=== PATIENT | female | born 1955 | race Caucasian/White ===

== ENCOUNTER 2019-04-28 18:20 | Inpatient (IN) | payer MEDICARE, OTHER ==
[~2019-04-28] VITALS: Ht 175.3 cm; Wt 51.7 kg
[2019-04-28 19:06] LABS: BASOPHILS # (AUTO) 0.1 K/uL (0.0-8.0); BASOPHILS % (AUTO) 0.8 % (0.0-2.0); EOSINOPHILS # (AUTO) 0.1 K/uL (0.0-0.7); EOSINOPHILS % (AUTO) 1.4 % (0.0-7.0); HEMATOCRIT 42.2 % (31.2-41.9); HEMOGLOBIN 14.4 g/dL (10.9-14.3); LYMPHOCYTES # (AUTO) 1.5 K/uL (20.0-40.0); LYMPHOCYTES % (AUTO) 20.2 % (20.5-51.5); MEAN CORPUSCULAR HEMOGLOBIN 31.4 uug (24.7-32.8); MEAN CORPUSCULAR HGB CONC 34 g/dL (32.3-35.6); MEAN CORPUSCULAR VOLUME 91.9 fL (75.5-95.3); MONOCYTES # (AUTO) 0.3 K/uL (2.0-10.0); MONOCYTES % (AUTO) 4.6 % (0.0-11.0); NEUTROPHILS # (AUTO) 5.5 K/uL (1.8-8.9); PLATELET COUNT (AUTO) 262 K/uL (179-408); WHITE BLOOD COUNT (AUTO) 7.6 K/uL (3.8-11.8)
[2019-04-28 19:09] LABS: *BILIRUBIN,URIN NEGATIVE (NEGATIVE); *CLARITY,URINE CLEAR (CLEAR); *COLOR,URINE YELLOW (YELLOW); *KETONES,URINE NEGATIVE (NEGATIVE); *UROBILINOGEN,URINE 0.2 E.U./dl (NORMAL); LEUKOCYTE ESTERASE ,URINE NEGATIVE (NEGATIVE); NITRITE, URINE NEGATIVE (NEGATIVE); UGLUCOSE NEGATIVE (NEGATIVE)
[2019-04-28 19:10] LABS: CARBON DIOXIDE 26 mmol/L (21-32); CHLORIDE 106 mmol/L (98-107); CREATININE 0.9 mg/dL (0.6-1.3); GLUCOSE 103 mg/dL (74-106); POTASSIUM 3.9 mmol/L (3.5-5.1); UREA NITROGEN, BLOOD 13 mg/dL (7-18)
[2019-04-28 19:16] LABS: ALANINE AMINOTRANSFERASE 27 U/L (14-59); ALKALINE PHOSPHATASE 73 U/L (50-136); ASPARTATE AMINOTRANSFERASE 29 U/L (15-37); BILIRUBIN,DIRECT 0.2 mg/dL (0.0-0.2); BILIRUBIN,TOTAL 0.7 mg/dL (0.2-1.0); TOTAL PROTEIN, SERUM 8.2 g/dL (6.4-8.2)
[2019-04-28 19:20] LABS: ACETAMINOPHEN < 2.0 ug/mL (10-30)
[2019-04-28 19:23] LABS: ETHANOL < 3 MG/DL (0-0)
[2019-04-28 19:26] LABS: *BLOOD, URINE TRACE (NEGATIVE)
[2019-04-28 19:27] LABS: *AMPHETAMINE, URINE NEGATIVE (NEGATIVE); *BARBITURATE, URINE NEGATIVE (NEGATIVE); *CANNABINOID, URINE NEGATIVE (NEGATIVE); *COCCAINE, URINE NEGATIVE (NEGATIVE); *OPIATE, URINE POSITIVE (NEGATIVE); *PHENCYCLIDINE SCREEN,URINE NEGATIVE (NEGATIVE)
[2019-04-28 19:28] LABS: SQUAMOUS EPITHELIAL CELL,UR FEW /HPF (NONE SEEN)
[2019-04-28] MEDS ORDERED: LORAZEPAM 0.5 MG TABLET PO ONE (19:45)
[2019-04-28] MEDS ORDERED: LORAZEPAM 0.5 MG TABLET ONE (19:48)
[2019-04-28] MEDS ORDERED: LORAZEPAM 0.5 MG TABLET PO PRN (20:15)
[2019-04-28] MEDS ORDERED: ZOLPIDEM 5 MG TABLET PO PRN (20:15)
[2019-04-28] MEDS ORDERED: MAG HYDROX/AL HYDROX/SIMETH 30 ML LIQUID UDC PO PRN (20:15)
[2019-04-28] MEDS ORDERED: MAGNESIUM HYDROXIDE 30 ML LIQUID UDC PO PRN (20:15)
[2019-04-29 08:03] VITALS: BP 121/77
[2019-04-29] MEDS ORDERED: CLONIDINE HCL 0.1 MG TABLET PO PRN (11:45)
[2019-04-29] MEDS: ESCITALOPRAM OXALATE 10 MG TABLET PO SCH (11:47)
[2019-04-29] MEDS ORDERED: ACETAMINOPHEN 325 MG TABLET PO PRN ×2 (15:45)
[2019-04-29 16:31] VITALS: BP 108/77
[2019-04-29] MEDS: QUETIAPINE FUMARATE 25 MG TABLET PO SCH (21:33)
[2019-04-29] MEDS: ATORVASTATIN 20 MG TABLET PO SCH (21:33)
[2019-04-30] MEDS: ESCITALOPRAM OXALATE 10 MG TABLET PO SCH (08:31)
[2019-04-30 08:38] VITALS: BP 101/56
[2019-04-30] MEDS: LORAZEPAM 0.5 MG TABLET PO PRN (10:37)
[2019-04-30] MEDS: QUETIAPINE FUMARATE 25 MG TABLET PO SCH (20:20)
[2019-04-30] MEDS: ATORVASTATIN 20 MG TABLET PO SCH (20:20)
[2019-05-01 07:30] VITALS: BP 113/67
[2019-05-01] MEDS: ESCITALOPRAM OXALATE 10 MG TABLET PO SCH (08:15)
[2019-05-01] MEDS: LORAZEPAM 0.5 MG TABLET PO PRN (13:12)
[2019-05-01 16:00] VITALS: BP 124/72
[2019-05-01 20:14] VITALS: BP 99/53
[2019-05-01] MEDS: QUETIAPINE FUMARATE 25 MG TABLET PO SCH (20:14)
[2019-05-01] MEDS: ATORVASTATIN 20 MG TABLET PO SCH (20:14)
[2019-05-02 07:30] VITALS: BP 125/83
[2019-05-02] MEDS: ESCITALOPRAM OXALATE 10 MG TABLET PO SCH (08:25)
[2019-05-02] MEDS: LORAZEPAM 0.5 MG TABLET PO PRN (12:38)
[2019-05-02 15:23] VITALS: BP 120/66
[2019-05-02 20:18] VITALS: BP 106/70
[2019-05-02] MEDS: QUETIAPINE FUMARATE 25 MG TABLET PO SCH (20:34)
[2019-05-02] MEDS: ATORVASTATIN 20 MG TABLET PO SCH (20:34)
[2019-05-03 07:30] VITALS: BP 97/55
[2019-05-03] MEDS: ESCITALOPRAM OXALATE 10 MG TABLET PO SCH (08:25)
[2019-05-03] MEDS: LORAZEPAM 0.5 MG TABLET PO PRN (11:39)
[2019-05-03 15:39] VITALS: BP 101/56
[2019-05-03 19:47] VITALS: BP 101/63
[2019-05-03] MEDS: QUETIAPINE FUMARATE 25 MG TABLET PO SCH (20:27)
[2019-05-03] MEDS: ATORVASTATIN 20 MG TABLET PO SCH (20:27)
[2019-05-04 07:56] VITALS: BP 122/77
[2019-05-04] MEDS ORDERED: ESCITALOPRAM OXALATE 10 MG TABLET PO SCH (09:00)
[2019-05-04] MEDS: ESCITALOPRAM OXALATE 10 MG TABLET PO SCH (09:12)
[2019-05-04] MEDS: LORAZEPAM 0.5 MG TABLET PO PRN (11:50)
[2019-05-04 15:50] VITALS: BP 92/61
[2019-05-04 19:54] VITALS: BP 104/68
[2019-05-04] MEDS: ATORVASTATIN 20 MG TABLET PO SCH (20:18)
[2019-05-04] MEDS: QUETIAPINE FUMARATE 25 MG TABLET PO SCH (20:19)
[2019-05-05 07:30] VITALS: BP 136/78
[2019-05-05] MEDS: ESCITALOPRAM OXALATE 10 MG TABLET PO SCH (08:03)
[2019-05-05] MEDS: LORAZEPAM 0.5 MG TABLET PO PRN (09:51)
[2019-05-05 16:00] VITALS: BP 113/76
[2019-05-05] MEDS: QUETIAPINE FUMARATE 25 MG TABLET PO SCH (20:17)
[2019-05-05] MEDS: ATORVASTATIN 20 MG TABLET PO SCH (20:17)
[2019-05-05 20:23] VITALS: BP 95/53
[2019-05-06 07:30] VITALS: BP_SYST 112; BP_SYST 129; BP_DIAS 46; BP_DIAS 78
[2019-05-06] MEDS: ESCITALOPRAM OXALATE 10 MG TABLET PO SCH (08:48)
[2019-05-06] MEDS: LORAZEPAM 0.5 MG TABLET PO PRN (10:39)
== END 2019-05-06 13:45 | disposition home or self-care (01) | DRG 885 ==
LOC: ER 18:20 → GPS 20:08
PROVIDERS: ADMIT Psychiatry & Neurology Psychiatry; ATTEND Nurse Practitioner Acute Care
DX: F31.5 Bipolar disorder, current episode depressed, severe, with psychotic features (principal); R94.31 Abnormal electrocardiogram [ECG] [EKG]; Z88.0 Allergy status to penicillin; E78.5 Hyperlipidemia, unspecified; I70.0 Atherosclerosis of aorta; F60.89 Other specific personality disorders; F60.4 Histrionic personality disorder; Z91.14 Patient's other noncompliance with medication regimen
CPT/HCPCS: 36415; 71045; 80307; 84443; 85025; 87086; 93005; A4663; G0480; G0480-TC